=== PATIENT | female | born 1955 | race Caucasian/White ===

== ENCOUNTER 2017-10-25 05:45 | Inpatient (IN) | payer OTHER ==
[2017-10-25] MEDS: GADODIAMIDE PF 287 MG/ML 10 ML VIAL (for RAD MRI) IVCONTRAST (05:46)
[2017-10-25 06:16] LABS: AUTOMATED NEUTROPHIL # 4.2 TH/MM3 (1.8-7.7); BASOPHIL # 0.1 TH/MM3 (0-0.2); BASOPHIL % 1.2 % (0.0-2.0); EOSINOPHIL % 0.6 % (0.0-4.0); HEMATOCRIT 43.5 % (35.0-46.0); HEMO FLAGS DIFF FINAL; HEMOGLOBIN 15.5 GM/DL (11.6-15.3); LYMPH % 32.5 % (9.0-44.0); LYMPHOCYTE # 2.4 TH/MM3 (1.0-4.8); MEAN CELL VOLUME 98.4 FL (80.0-100.0); MEAN CORPUSCULAR HEMOGLOBIN 35.1 PG (27.0-34.0); MEAN CORPUSCULAR HGB CONC 35.7 % (32.0-36.0); MEAN PLATELET VOLUME 8.2 FL (7.0-11.0); MONO % 8.1 % (0.0-8.0); MONOCYTE # 0.6 TH/MM3 (0-0.9); NEUT % 57.6 % (16.0-70.0); PLATELET COUNT 252 TH/MM3 (150-450); RED BLOOD COUNT 4.42 MIL/MM3 (4.00-5.30); WHITE BLOOD COUNT 7.3 TH/MM3 (4.0-11.0)
[2017-10-25 06:29] LABS: APTT (PATIENT) 25.5 SEC (24.3-30.1); INTERNATIONAL NORMALIZED RATIO 0.9 RATIO; PROTHROMBIN TIME - PATIENT 9.6 SEC (9.8-11.6)
[2017-10-25 06:33] LABS: ALBUMIN 3.9 GM/DL (3.4-5.0); ALT (GPT) 17 U/L (10-53); ANION GAP 8 MEQ/L (5-15); AST (GOT) 19 U/L (15-37); BICARBONATE 27.1 MEQ/L (21.0-32.0); BLOOD UREA NITROGEN 14 MG/DL (7-18); CHLORIDE 104 MEQ/L (98-107); CREATININE 0.85 MG/DL (0.50-1.00); GLOMERULAR FILTRATION RATE 68 ML/MIN (>89); GLUCOSE,RANDOM 111 MG/DL (74-106); POTASSIUM 3.4 MEQ/L (3.5-5.1); SODIUM (NA) 139 MEQ/L (136-145)
[2017-10-25 06:37] LABS: ALKALINE PHOSPHATASE 83 U/L (45-117); TOTAL BILIRUBIN ADULT 0.4 MG/DL (0.2-1.0); TOTAL PROTEIN 7.5 GM/DL (6.4-8.2); TROPONIN I LESS THAN 0.02 NG/ML (0.02-0.05)
[2017-10-25 06:39] LABS: CREATINE KINASE 82 U/L (26-192)
[2017-10-25] MEDS: levETIRAcetam INJ 100 ML IV (09:03)
[2017-10-25] MEDS ORDERED: ACETAMINOPHEN 325 MG TAB PO (09:30)
[2017-10-25] MEDS ORDERED: MAGNESIUM HYDROXIDE SUSP 30 ML CUP PO (09:30)
[2017-10-25] MEDS ORDERED: NALOXONE HCL 0.4 MG/ML AMP IV PUSH (09:30)
[2017-10-25] MEDS ORDERED: BISACODYL 10 MG SUPP RECTAL (09:30)
[2017-10-25] MEDS ORDERED: LACTULOSE SYRUP 20 GM/30 ML CUP PO (09:30)
[2017-10-25] MEDS ORDERED: SENNOSIDES 8.6 MG TAB PO (09:30)
[2017-10-25] MEDS ORDERED: SODIUM CHLORIDE 0.9% FLUSH 10 ML FLUSH IV FLUSH (09:30)
[2017-10-25] MEDS ORDERED: LORazepam 2 MG/ML VIAL IV PUSH (09:45)
[2017-10-25] MEDS: ONDANSETRON HCL 4 MG/2 ML VIAL IVP (10:23)
[2017-10-25] MEDS: POTASSIUM CHLORIDE 20 MEQ CONTROLLED RELEASE TAB PO (10:23)
[2017-10-25 12:46] LABS: CULTURE IF INDICATED CULT NOT INDICATED
[2017-10-25] MEDS: DOCUSATE SODIUM 50 MG/SENNA 8.6 MG TAB PO (21:00)
[2017-10-26] MEDS: levETIRAcetam INJ 100 ML IV ×3 (00:04→10:51)
[2017-10-26] MEDS: SODIUM CHLORIDE 0.9% FLUSH 10 ML FLUSH IV FLUSH ×3 (00:04→20:45)
[2017-10-26] MEDS: ONDANSETRON HCL 4 MG/2 ML VIAL IVP (04:46)
[2017-10-26 07:06] LABS: AUTOMATED NEUTROPHIL # 5.9 TH/MM3 (1.8-7.7); BASOPHIL % 0.6 % (0.0-2.0); EOSINOPHIL % 0.2 % (0.0-4.0); HEMATOCRIT 43.4 % (35.0-46.0); HEMO FLAGS DIFF FINAL; HEMOGLOBIN 15.1 GM/DL (11.6-15.3); LYMPH % 17.3 % (9.0-44.0); LYMPHOCYTE # 1.3 TH/MM3 (1.0-4.8); MEAN CELL VOLUME 97.6 FL (80.0-100.0); MEAN CORPUSCULAR HEMOGLOBIN 33.9 PG (27.0-34.0); MEAN CORPUSCULAR HGB CONC 34.7 % (32.0-36.0); MEAN PLATELET VOLUME 7.7 FL (7.0-11.0); MONOCYTE # 0.5 TH/MM3 (0-0.9); NEUT % 75.9 % (16.0-70.0); PLATELET COUNT 238 TH/MM3 (150-450); RED BLOOD COUNT 4.45 MIL/MM3 (4.00-5.30); WHITE BLOOD COUNT 7.7 TH/MM3 (4.0-11.0)
[2017-10-26 07:59] LABS: ANION GAP 10 MEQ/L (5-15); BICARBONATE 23.5 MEQ/L (21.0-32.0); BLOOD UREA NITROGEN 9 MG/DL (7-18); CALCIUM 9.2 MG/DL (8.5-10.1); CHLORIDE 101 MEQ/L (98-107); CREATININE 0.59 MG/DL (0.50-1.00); GLOMERULAR FILTRATION RATE 104 ML/MIN (>89); GLUCOSE,RANDOM 103 MG/DL (74-106); SODIUM (NA) 134 MEQ/L (136-145)
[2017-10-26] MEDS: DOCUSATE SODIUM 50 MG/SENNA 8.6 MG TAB PO ×2 (08:29→20:44)
[2017-10-26] MEDS: DIATRIZOATE MEGLUM/DIATRIZOATE SOD 9 ML CUP PO (11:55)
[2017-10-26] MEDS: ALPRAZolam 0.25 MG TAB PO ×2 (14:47→22:02)
[2017-10-26] MEDS: IOHEXOL 350 MG/ML 10 ML VIAL (for RAD DIAG) IVCONTRAST (15:48)
[2017-10-26] MEDS: TOPIRAMATE 25 MG TAB PO (20:44)
[2017-10-26] MEDS: levETIRAcetam 500 MG TAB PO (22:06)
[2017-10-27] MEDS: ONDANSETRON HCL 4 MG/2 ML VIAL IVP ×2 (02:45→21:19)
[2017-10-27] MEDS: ACETAMINOPHEN 325 MG TAB PO ×2 (02:45→18:34)
[2017-10-27] MEDS: DOCUSATE SODIUM 50 MG/SENNA 8.6 MG TAB PO ×2 (08:56→21:19)
[2017-10-27] MEDS: SODIUM CHLORIDE 0.9% FLUSH 10 ML FLUSH IV FLUSH ×2 (08:56→21:20)
[2017-10-27] MEDS: ALPRAZolam 0.25 MG TAB PO ×2 (08:57→18:33)
[2017-10-27 10:36] LABS: ANION GAP 7 MEQ/L (5-15); BICARBONATE 25.6 MEQ/L (21.0-32.0); BLOOD UREA NITROGEN 11 MG/DL (7-18); CALCIUM 9.1 MG/DL (8.5-10.1); CHLORIDE 99 MEQ/L (98-107); CREATININE 0.83 MG/DL (0.50-1.00); GLOMERULAR FILTRATION RATE 70 ML/MIN (>89); GLUCOSE,RANDOM 92 MG/DL (74-106); MAGNESIUM 2.1 MG/DL (1.5-2.5); POTASSIUM 3.9 MEQ/L (3.5-5.1); SODIUM (NA) 132 MEQ/L (136-145)
[2017-10-27 10:39] LABS: CREATINE KINASE 127 U/L (26-192)
[2017-10-27] MEDS: FAMOTIDINE 20 MG TAB PO ×2 (11:36→21:19)
[2017-10-27] MEDS: DEXAMETHASONE 4 MG TAB PO ×2 (11:36→21:19)
[2017-10-27] MEDS: levETIRAcetam 500 MG TAB PO ×2 (11:36→21:19)
[2017-10-27] MEDS: TOPIRAMATE 25 MG TAB PO (21:19)
[2017-10-27] MEDS: ZOLPIDEM TARTRATE 5 MG TAB PO (21:19)
[2017-10-28] MEDS: SODIUM CHLORIDE 0.9% FLUSH 10 ML FLUSH IV FLUSH ×2 (08:12→21:39)
[2017-10-28] MEDS: FAMOTIDINE 20 MG TAB PO ×2 (08:14→21:39)
[2017-10-28] MEDS: DOCUSATE SODIUM 50 MG/SENNA 8.6 MG TAB PO ×2 (08:15→21:00)
[2017-10-28] MEDS: DEXAMETHASONE 4 MG TAB PO ×2 (08:16→21:39)
[2017-10-28] MEDS: levETIRAcetam 500 MG TAB PO ×2 (11:05→21:44)
[2017-10-28] MEDS ORDERED: LIDOCAINE HCL 1% 20 ML VIAL (14:12)
[2017-10-28] MEDS: ALPRAZolam 0.25 MG TAB PO (20:38)
[2017-10-28] MEDS: TOPIRAMATE 25 MG TAB PO (21:39)
[2017-10-28] MEDS: ACETAMINOPHEN 325 MG TAB PO (21:45)
[2017-10-28] MEDS: ZOLPIDEM TARTRATE 5 MG TAB PO (21:45)
[2017-10-29] MEDS: ONDANSETRON HCL 4 MG/2 ML VIAL IVP (00:04)
[2017-10-29] MEDS ORDERED: LIDOCAINE HCL 1% 20 ML VIAL (07:32)
[2017-10-29] MEDS: MIDAZOLAM HCL 2 MG/2 ML VIAL (07:50)
[2017-10-29] MEDS: DEXAMETHASONE 4 MG TAB PO (09:00)
[2017-10-29] MEDS: SODIUM CHLORIDE 0.9% FLUSH 10 ML FLUSH IV FLUSH (09:00)
[2017-10-29] MEDS: DOCUSATE SODIUM 50 MG/SENNA 8.6 MG TAB PO (09:00)
[2017-10-29] MEDS: FAMOTIDINE 20 MG TAB PO (09:00)
[2017-10-29] MEDS: levETIRAcetam 500 MG TAB PO (11:59)
== END 2017-10-29 14:46 | disposition home or self-care (01) | DRG 70 ==
LOC: NEPE 05:45 → NEDA 08:34 → NEDH 12:57 → N05B 15:34
PROC: 0BBG3ZX Excision of Left Upper Lung Lobe, Percutaneous Approach, Diagnostic (ICD-10-PCS; principal; 2017-10-29)
DX: G93.9 Disorder of brain, unspecified (principal); G93.40 Encephalopathy, unspecified; R91.8 Other nonspecific abnormal finding of lung field; R56.9 Unspecified convulsions; I25.10 Atherosclerotic heart disease of native coronary artery without angina pectoris; I25.2 Old myocardial infarction; Z85.3 Personal history of malignant neoplasm of breast; G47.00 Insomnia, unspecified; F41.9 Anxiety disorder, unspecified; E83.119 Hemochromatosis, unspecified; F17.210 Nicotine dependence, cigarettes, uncomplicated
CPT/HCPCS: 32405; 70450; 70553; 71045; 71260; 74177; 77012; 80048; 80053; 80307; 81001; 82550; 82948; 83735; 84484; 85025; 85610; 85730; 88305; 88333; 88341; 88342; 93005; 95819; 97110-GP; 97116-GP; 97162-GP; 99223; 99285-25